=== PATIENT | female | born 2000 | race Caucasian/White ===

== ENCOUNTER 2025-01-06 13:21 | Outpatient (CLI) | payer OTHER, SELFPAY ==
[2025-01-06 16:45] LABS: HCG,Quantitative 198 mIU/ml (0-5.42)
== END 2025-01-06 23:59 | disposition home or self-care (01) ==
LOC: LAB 13:24
PROVIDERS: PCP Pediatrics; Visit Provider Obstetrics & Gynecology
DX: Z32.01 Encounter for pregnancy test, result positive (principal)
CPT/HCPCS: 36415; 84144; 84702

== ENCOUNTER 2025-01-08 12:35 | Outpatient (CLI) | payer OTHER, SELFPAY ==
[2025-01-08 14:20] LABS: HCG,Quantitative 551 mIU/ml (0-5.42)
== END 2025-01-08 23:59 | disposition home or self-care (01) ==
LOC: LAB 12:37
PROVIDERS: PCP Pediatrics; Visit Provider Obstetrics & Gynecology
DX: Z32.01 Encounter for pregnancy test, result positive (principal)
CPT/HCPCS: 36415; 84702